=== PATIENT | male | born 2005 | race Asian ===

== ENCOUNTER 2023-10-14 14:01 | Emergency (ER) | payer OTHER ==
[~2023-10-14] VITALS: Ht 193 cm; Wt 70.5 kg
[2023-10-14 14:07] VITALS: TEMP 98
[2023-10-14] MEDS ORDERED: fentaNYL 50 MCG/ML 2 ML VIAL IV ONE (15:00)
[2023-10-14] MEDS ORDERED: Ondansetron 4 MG/2 ML VIAL IV ONE (15:00)
[2023-10-14] MEDS ORDERED: NS 1,000 ML IV ONE (15:00)
[2023-10-14 15:24] LABS: BASO # 0.1 K/mm3 (0.0-0.2); EOS % 0.8 % (0.0-4.0); GRAN # 2.6 K/mm3 (1.4-6.5); GRAN % 52.7 % (42.2-75.2); HEMATOCRIT 47.4 % (36.0-47.0); HEMOGLOBIN 16.5 g/dl (12.5-16.1); LYMPH # 1.8 K/mm3 (1.2-3.4); LYMPH % 36.5 % (20.0-51.0); MEAN CELL VOLUME 85 fl (80.0-95.0); MEAN CORPUSCULAR HEMOGLOBIN 30 pg (26-32); MEAN CORPUSCULAR HGB CONC 35 g/dl (33.0-37.0); MEAN PLATELET VOLUME 10.7 fl (7.4-10.4); MONO # 0.4 K/mm3 (0.1-0.6); MONO % 8.8 % (1.7-9.3); PLATELET COUNT 153 K/mm3 (130-400); RED BLOOD COUNT 5.56 M/mm3 (4.20-5.60); REDCELL DISTRIBUTION WIDTH-CV 12.4 % (11.5-14.5)
[2023-10-14 15:41] LABS: ALBUMIN 4.4 g/dL (3.5-5.0); BILIRUBIN,TOTAL 1.1 mg/dL (0.2-1.2); CALCIUM 9.6 mg/dL (8.4-10.2); CREATININE, serum 0.87 mg/dL (0.72-1.25); TOTAL PROTEIN 7.8 g/dl (6.2-8.1)
[2023-10-14 16:34] VITALS: BP 122/73; PULSE 53
[2023-10-14] MEDS ORDERED: NORCO 325 MG-51 TAB PO (16:45)
== END 2023-10-14 16:45 | disposition home or self-care (01) ==
LOC: COL.ER 14:01
PROVIDERS: Family Medicine
DX: J93.9 Pneumothorax, unspecified (principal)
CPT/HCPCS: J2405; J3010; J7030

== ENCOUNTER → 2023-11-29 | Outpatient (CLI) | payer OTHER ==
[~2023-11-29] MED LIST: NORCO 325 MG-51 TAB PO
== END ==
LOC: COL.RAD 15:33
DX: N50.811 Right testicular pain (principal)

== ENCOUNTER 2023-12-13 15:01 | Inpatient (IN) | payer OTHER ==
[2023-12-13] VITALS (7 sets, daily range): BP systolic 100–123; BP diastolic 49–77; PULSE 51–64; TEMP 97.7–98
[~2023-12-13] VITALS: Ht 195.6 cm; Wt 70.5 kg
[2023-12-13] MEDS ORDERED: fentaNYL 50 MCG/ML 2 ML VIAL IV ONE (16:30)
[2023-12-13] MEDS ORDERED: Midazolam 2 MG/2 ML VIAL IV ONE (16:30)
[2023-12-13] MEDS ORDERED: NS 1,000 ML IV ONE (17:45)
[2023-12-13] MEDS ORDERED: fentaNYL 50 MCG/ML 2 ML VIAL ONE (20:09)
[2023-12-13] MEDS ORDERED: NS 10 ML IV ONE (20:13)
[2023-12-13] MEDS ORDERED: Lidocaine PF 2% (20 MG/ML) 5 ML VIAL ONE (20:13)
--- NOTE | 2023-12-13 21:25 | NUR ---
Report recieved from [place]. All questions answered at this time.
[2023-12-13] MEDS ORDERED: oxyCODONE 5 MG TAB PO PRN (21:30)
[2023-12-13] MEDS ORDERED: Naloxone 0.4 MG/ML VIAL IV PRN (21:30)
[2023-12-13] MEDS ORDERED: Ondansetron 4 MG/2 ML VIAL IV PRN (21:30)
[2023-12-13] MEDS ORDERED: HYDROmorphone 0.5 MG/0.5 ML SYRINGE IV PRN (21:30)
--- NOTE | 2023-12-13 21:35 | NUR ---
Patient arrived to room 331 at this time with personal belongings. Brought to room by Beau from OR. Post-op VS initiated. Patient rates pain at 5/10 when taking a deep breath in. Water and food provided. Needs met. Assessment and med rec complete. IV in right forearm flushes easily without complicaitons. 28f chest tube to right chest. Dressing of xeroform, gauze, and tape is CDI. [place] dry suction water seal chest drain to -20 h20 suction. Oriented patient to room, bed, call light, and bathroom. Call light and personal items in reach. Bed in low position. Mother- Stephani and brother- Sonny at bedside.
[2023-12-13] MEDS ORDERED: Acetaminophen 500 MG TAB PO SCH (22:25)
[2023-12-14] VITALS (13 sets, daily range): BP systolic 99–123; BP diastolic 50–85; PULSE 54–64; TEMP 97.9–99
--- NOTE | 2023-12-14 00:04 | NUR ---
INCENTIVE SPIROMETER CONTRAINDICATED DUE TO PT HAVING A PNEUMOTHORAX. INCENTIVE SPIROMETER ORDER D/C'D. RN AWARE.
--- NOTE | 2023-12-14 07:26 | NUR ---
Report recieved form ALEKSANDER Xiong. Reviewed overnight events and labs. CT to left chest is at -20cm suction[facility] WIll continue with POC.
--- NOTE | 2023-12-14 10:46 | NUR ---
rack worker met with patient and his mother, Stephani, P# [phone], to discuss discharge planning. Patient lives in [place] as a [employer] student. PCP is Dr. Edwards, Pharmacy is [facility]. No issues affording medications. Insurance is UMR. DPOA-HC is not in writing but would go to Stephani, patient's next of kin. No DME, patient is independent with ADLS. Patient is able to transport himself to and from appointments. Patient would like to return home at time of discharge. DIscharge plan: Home
--- NOTE | 2023-12-14 11:52 | NUR ---
Verbal report given to primary nurse Laura. Questions entertained and answered. Care assumed by primary nurse.
--- NOTE | 2023-12-14 13:47 | NUR ---
Initial visit; Kushal in bed noticed Digital Marketing Lead had come into the room and acknowledged her. His mom was sitting in a chair near the door. Digital Marketing Lead addressed them both mentioning that she is available to provide Spiritual Care. She can pray for him at that time or keep him in her prayers. Mom thanked Digital Marketing Lead for looking in on him and offering Gods blessings. d
--- NOTE | 2023-12-14 23:25 | NUR ---
Patient assessed around 2009. Complained of level 4 pain to left chest tube site. Given PRN Roxicodone. Left chest tube is to 20 suction per orders. Dressing to site is CDI. Voices no further questions, needs, or concerns at this time. In bed with call light within reach.
[2023-12-15] VITALS (13 sets, daily range): BP systolic 113–127; BP diastolic 65–82; PULSE 55–66; TEMP 98.3–99.2
--- NOTE | 2023-12-15 06:27 | NUR ---
Patient given scheduled Acetaminophen during the night, and had PRN Roxicodone once this shift. Chest tube taken off of suction per orders at 0600. Only had 5mls of output from chest tube this shift. This nurse called radiology, and is aware of need for CXR at 0700. Patient voices no questions, needs, or concerns at this time. In bed with call light within reach.
--- NOTE | 2023-12-15 07:32 | NUR ---
Shift assessment complete. Pt. resting in bed w/ eyes closed upon entry. Lung sounds are clear over all mckeon. Pt. denies shortness of breath. Lt sided chest tube to water seal at 20 cm. Dressing CDI. Chest tube is draining small amounts of red-tinged fluid. Pt. states pain is 3/10, and states his pain is "more feasible" this morning. Pain goal is 4/10, pt. denies need for analgesia at this time. No further outstanding findings. Breakfast tray ordered. Pt. resting in bed w/ call light in reach. No request or complaints at this time.
--- NOTE | 2023-12-15 09:10 | NUR ---
Pt. reports pain is increasing and is requesting analgesia. Primary nurse notified.
--- NOTE | 2023-12-15 12:09 | NUR ---
Pt reports pain as 3/10. Denies further needs. Report given to ALEKSANDER Phillips.
--- NOTE | 2023-12-15 20:00 | NUR ---
Shift assessment complete. Respirations are even and unlabored. Lung sounds are clear over all mckeon. Lt side chest tube under water seal w/ scant amounts of blood-tinged drainage. Pt. reports pain is managable at this time and rates it 2/10. No further outstanding findings. Pt. denies needs or requests at this time. Call light in reach.
[2023-12-16] VITALS (10 sets, daily range): BP systolic 105–127; BP diastolic 64–86; PULSE 53–73; TEMP 97.6–97.9
--- NOTE | 2023-12-16 05:41 | NUR ---
Pt. had uneventful evening. Pain was controlled through the night however pt. states pain is increasing this morning but still tolerable. Scheduled acetaminophen administered per MAR. Pt. denies needs or request at this time. Call light in reach and mother is at bed side.
--- NOTE | 2023-12-16 10:00 | NUR ---
reviewed chest xray. Diet progressed, No plans for procedure today. Lovenox as ordered.
--- NOTE | 2023-12-16 11:22 | NUR ---
Patient resting in bed. His mother was at bedside. Patient denies the need for pain medication. rounded and plan of care reviewed.
--- NOTE | 2023-12-16 12:54 | NUR ---
Patient given warm wipes, offered fresh linens. Encouraged activity (sitting up in chair and or ambulation in halls). His mother has gone home. Patient watching TV/Reading book.
--- NOTE | 2023-12-16 18:29 | NUR ---
Patient resting in bed with minimal needs today. Report pain the same. Int. Chest tube to DD. Dressing intact. Will report off to nightnurse
[2023-12-17] VITALS (16 sets, daily range): BP systolic 100–121; BP diastolic 64–76; PULSE 51–92; TEMP 97.4–98.8
--- NOTE | 2023-12-17 09:15 | NUR ---
Pt. sitting up in bed. Pt. is A&OX3, assessment complete. INT to rt. forearm patent. Dr. Gr in the room at this time. Dr. Gr pulling Chest tube at this time. Vasaline pressure dressing applied by Dr. Gr. Pt. tolerated well. Pt. denies pain. Scheduled tylenol given. Pt. denies further needs, call light within reach.
[2023-12-17] MEDS ORDERED: Petrolatum, White Ointment 1 Each Tube TP SCH (09:20)
[2023-12-17] MEDS ORDERED: Rocuronium 50 MG/5 ML Multi-Dose VIAL ONE ×2 (14:34→15:27)
[2023-12-17] MEDS ORDERED: dexAMETHasone 10 MG/ML VIAL ONE (14:34)
[2023-12-17] MEDS ORDERED: fentaNYL 50 MCG/ML 2 ML VIAL ONE (14:34)
[2023-12-17] MEDS ORDERED: Lidocaine PF 2% (20 MG/ML) 5 ML VIAL ONE (14:34)
[2023-12-17] MEDS ORDERED: Ondansetron 4 MG/2 ML VIAL ONE (14:34)
[2023-12-17] MEDS ORDERED: fentaNYL 50 MCG/ML 2 ML VIAL IV ONE (14:37)
--- NOTE | 2023-12-17 14:48 | NUR ---
Pt. to the OR at this time.
[2023-12-17] MEDS ORDERED: Midazolam 2 MG/2 ML VIAL ONE (14:52)
[2023-12-17] MEDS ORDERED: Naloxone 0.4 MG/ML VIAL IV PRN (16:15)
[2023-12-17] MEDS ORDERED: Ondansetron 4 MG/2 ML VIAL IV PRN ×2 (16:15→16:45)
[2023-12-17] MEDS ORDERED: Ibuprofen 600 MG TAB PO PRN (16:30)
[2023-12-17] MEDS ORDERED: HYDROmorphone 0.5 MG/0.5 ML SYRINGE IV PRN (16:30)
[2023-12-17] MEDS ORDERED: hydrALAZINE 20 MG/ML 1 ML VIAL IV PRN (16:45)
[2023-12-17] MEDS ORDERED: HYDROmorphone 1 MG/1 ML SYRINGE [PACU/SDC ONLY] IV PRN (16:45)
[2023-12-17] MEDS ORDERED: fentaNYL 50 MCG/ML 1 ML SYRINGE/VIAL [PACU/SDC ONLY] IV PRN (16:45)
[2023-12-17] MEDS ORDERED: Acetaminophen 500 MG TAB PO SCH (17:14)
[2023-12-18] VITALS (11 sets, daily range): BP systolic 100–113; BP diastolic 63–73; PULSE 67–90; TEMP 97.7–98.3
--- NOTE | 2023-12-18 07:10 | NUR ---
Patient resting in bed. Talking in a whisper, reports pain elevated with talking. He is rating his pain a 5/10 this am, but denies wanting to take roxicodone this am, just tyelnol. I did discussed with him motrin as a non narcotic option avaliable as well. He reports no problem with constipation, but I did make him aware that narcotics can cause constipatin and to let staff know if this becomes a problem. CHest tube to 20mg suction as ordered, with minimal output. Dressing CDI. Fresh ice water provided, denies other need at this time
[2023-12-18] MEDS ORDERED: Ketorolac 30 MG/ML VIAL IV SCH (08:30)
[2023-12-18] MEDS ORDERED: Polyethylene Glycol 3350 17 GM PDS PO SCH (09:00)
[2023-12-18] MEDS ORDERED: Docusate Sodium 100 MG CAP PO SCH (09:00)
--- NOTE | 2023-12-18 09:13 | NUR ---
rounded. Plan of care reviewed with patient and mother. Patient mother had concerns of constipation and orders obtained. We also reviewed toradol, but patient had burning with toradol in IV & refused at this time. Patient mother assisting with a bed bath at this time and linens.
[2023-12-18] MEDS ORDERED: Ibuprofen 600 MG TAB PO SCH (10:15)
--- NOTE | 2023-12-18 10:44 | NUR ---
Patient resting in bed. Reports pain creeping up again, feels tylenol wearing off. Did get orders chagned from , since patient unable to tolerate toadol, order changed to motrin scheduled. Denies other needs at this time
--- NOTE | 2023-12-18 11:12 | NUR ---
Patient agreeable to sit up in chair, He did not quite feel up to ambulating halls yet. His facial expressions show that his is uncomfortable up in chair. I again offered Roxicodone, but patient not interested. He is agreeable to try Kpad to his Left neck.shoulder. Patient also concerned about his incentive spirometer use, I reassured him he is using it well, he is not expected to reach the top especially after having a lung surgery. Will continue to give positive reenforcments.
--- NOTE | 2023-12-18 12:34 | NUR ---
Patient in positive spirits. He reports feeling better. Believes the Kpad is helping. He reports it being easier to use incentive spirometer. We ambulated around the room, thinks he will be ready to walk halls this afternoon. Lunch ordered.
--- NOTE | 2023-12-18 13:53 | NUR ---
Patient finishing lunch tray, denies needs at this time
--- NOTE | 2023-12-18 16:29 | NUR ---
Kushal up to the bathroom & voided, no BM yet, but reports flatus. Patient ambulated arounded room and to the hallway. He reports his left side becoming more tender, but reports neck and shoulder discomfort improved. Motrin as scheduled. Minimal drainage from chest tube, remains to 20cmmg suction as ordered to dry seal canister. He continues to Use Incentive spirometer as ordered. Fresh ice water provided and fluid intake encourged. Denies other needs at this time
--- NOTE | 2023-12-18 17:24 | NUR ---
Patient resting in bed, with friend at bedside.
--- NOTE | 2023-12-18 22:05 | NUR ---
Patient given PRN Roxicodone and scheduled Motrin. Reported pain to left chest tube site was a 5. Peripheral INT to right forearm. Reports some difficulty with taking deep breaths, but states it is better. LS CTA. HRR. BSAx4. No Bm for 6 days. Given scheduled Colace. States he does not feel backed up at this time, and that it is hard for him to have a BM when he is not at home. No edema. Dressing to left chest tube site is CDI. Voices no questions, needs, or concerns at this time. In bed with call light within reach.
[2023-12-19] VITALS (12 sets, daily range): BP systolic 97–115; BP diastolic 52–76; PULSE 55–82; TEMP 97.4–98.5
--- NOTE | 2023-12-19 05:53 | NUR ---
Patient received Tylenol, Motrin, and Roxicodone as requested for pain during the night. Had 5 ml output in chest tube. Voices no questions, needs, or concerns at this time. In bed with call light within reach.
[2023-12-19 09:16] LABS: BASO % 0.5 % (0.0-2.0); EOS # 0.1 K/mm3 (0.0-0.7); EOS % 1.2 % (0.0-4.0); GRAN # 4.1 K/mm3 (1.4-6.5); GRAN % 55.2 % (42.2-75.2); HEMATOCRIT 42.8 % (36.0-47.0); LYMPH # 2.4 K/mm3 (1.2-3.4); LYMPH % 32.5 % (20.0-51.0); MEAN CELL VOLUME 86 fl (80.0-95.0); MEAN CORPUSCULAR HEMOGLOBIN 30 pg (26-32); MEAN CORPUSCULAR HGB CONC 35 g/dl (33.0-37.0); MEAN PLATELET VOLUME 10.4 fl (7.4-10.4); MONO # 0.8 K/mm3 (0.1-0.6); MONO % 10.3 % (1.7-9.3); PLATELET COUNT 151 K/mm3 (130-400); REDCELL DISTRIBUTION WIDTH-CV 12.2 % (11.5-14.5)
[2023-12-19 09:18] LABS: CALCIUM 8.9 mg/dL (8.4-10.2); CREATININE, serum 0.79 mg/dL (0.72-1.25); POTASSIUM 3.9 mEq/L (3.5-4.5)
--- NOTE | 2023-12-19 21:26 | NUR ---
PATIENT RESTING IN BED WATCHING TV. DENIES PAIN, HOWEVER STATES HE IS FEELING A "WARM" FEELING AROUND CHEST TUBE INSERTION SITE. CHEST TUBE DRESSING IS CLEAN/DRY/INTACT, NO DRAINAGE OR REDNESS PRESENT. CALL LIGHT WITHIN REACH. BED IS LOCKED AND IN LOW POSITION
[2023-12-20] VITALS (13 sets, daily range): BP systolic 110–128; BP diastolic 65–77; PULSE 58–97; TEMP 97.3–98.6
[2023-12-20] MEDS ORDERED: Ibuprofen 600 MG TAB PO PRN (10:00)
--- NOTE | 2023-12-20 12:05 | NUR ---
PATIENT ALERT AND ORIENTED X4. VSS. PATIENT HERE FOR PNEUMO. CT TO WATERSEAL. PATIENT REPORTS PAIN /, REQUESTS SCHEDULED TYLENOL/MOTRIN WHEN DUE. PATIENT TOLERATING PO. NO FURTHER NEEDS. CALL LIGHT IN REACH.
--- NOTE | 2023-12-20 13:21 | NUR ---
SW met with patient to review discharge plan. RN in room during conversation, Patient continues to have pain from drain sight. Patient reports that he lives with his brother in [place] and that brother will assist him as needed once he returns home. Patient reports that his mother has been in contact with his professors at [employer] related to his missed days and assignments. Patient reports they have a meeting on Monday to discuss his assignments. Patient denies any discharge needs at this time. Discharge plan: Home
--- NOTE | 2023-12-20 13:27 | NUR ---
PATIENT HAS NOT HAD A BM ALL WEEK, PATIENT ENCOURAGED TO DRINK EXTRA WATER AND INCREASE PHYSICAL ACTIVITY. PATIENT'S MOTHER REQUESTS THAT SHE BE ABLE TO BRING IN LAXATIVES OR MEDICATIONS FROM HOME, PATIENT'S MOTHER EDUCATED ON IMPORTANCE OF ALLOWING HOSPITAL AND STAFF TO PROVIDE MEDICATIONS FROM FACILITY. PATIENT REPORTS HE DOES NOT DRINK WATER AND HAS NOT INCREASED ACTIVITY D/T PAIN. PATIENT ENCOURAGED TO REPORT ACCURATE PAIN LEVEL TO NURSING STAFF IN ORDER TO BE TREATED FOR PAIN.
--- NOTE | 2023-12-20 15:50 | NUR ---
SW received call from patient's mother stating her concerns of patient being in his room for 7 days and beginning to have symtoms of depression. Mother stated that she is coming from [facility]'s home to get him "regular clothes" for him to wear instead of being in hosptial gown. She also stated that patient has been encouraged by staff to work on his school studies while in his room. Mother stated that patient's brother visited and has walked with patient in [place]. Mother is requesting to take patient outside in a wheelchair to get sunshine on his face and feel more motivated. SONJA informed mother that patient leaving the unit with chest tube in would have to be addressed with the attending and nursing during rounds tomorrow morning. Mother voiced understanding. SW called unit to notify RN of this conversation. RN busy at time of call and message was left with IVORY Bergeron to notify RN of mother's call and requests.
--- NOTE | 2023-12-20 16:06 | NUR ---
PATIENT NON-COMPLIANT WITH IS. PATIENT ENCOURAGED TO USE IS PER ORDER. DR. DUFFY AWARE THAT PATIENT IS NON-COMPLIANT WITH INCENTIVE SPIROMETER, AMBULATION, AND ORAL INTAKE.
[2023-12-21] VITALS (12 sets, daily range): BP systolic 111–177; BP diastolic 63–80; PULSE 59–95; TEMP 98–98.5
--- NOTE | 2023-12-21 07:40 | NUR ---
Recieved bedside shift report from ALEKSANDER Zayas. Shift assessment complete at this time. Respirations are even and unlabored. Oxygen saturations are WNL at 98% on room air. Rt lung is clear to ausculation. However, Lt. lung sounds are diminished at bases. Pt. still c/o pain w/ movement and deep breaths- rates pain 3/10 this morning. Pain is isolated to chest tube insertion site. Pt. reports K-pad has helped alleviate Lt. shoulder pain. Lt. chest tube is under water seal w/ scant amounts of red-tinged drainage. Dressing is CDI. No further outstanding findings. Pt. denies needs or requests. Call light in reach.
--- NOTE | 2023-12-21 08:30 | NUR ---
Offered breakfast, pt. reports he is waiting for his mother to arrive before ordering.
--- NOTE | 2023-12-21 08:31 | NUR ---
Assisted pt. to restroom. Gait is steady. Pt. is wincing with movement. Pt. returned to bed. Scheduled meds administered per MAY. Pt. denies needs or requests at this time. Call light in reach.
--- NOTE | 2023-12-21 09:29 | NUR ---
Pt's mother is at bedside. Pt states pain is "about the same." Breakfast is ordered. Pt's mom reports she and the patient will ambulate halls after breakfast.
--- NOTE | 2023-12-21 10:29 | NUR ---
Pt returned from ambulating halls w/ mother. Pt. continues to rate pain /10. He reports insertion site pain increased with ambulation and Lt. shoulder pain returned but both subside with rest. Scheduled analgesia administered per MAY. K-pad in place. Linens changed, bathing wipes and shampoo cap provided. Pt. denies further needs or request. Call light in reach.
--- NOTE | 2023-12-21 12:12 | NUR ---
Report given to primary nurse, ALEKSANDER Phillips. All questions entertained and answered. Care assumed by primary nurse.
--- NOTE | 2023-12-21 20:59 | NUR ---
Patient assessed at this time, see shift assessment, A/Ox4, chest tube taken out at 1730 as per report from dayshift, reports minimal pain, PS of 1/10, denies further needs, call light and personal items within reach, will continue to monitor.
[2023-12-22] VITALS (8 sets, daily range): BP systolic 120–130; BP diastolic 70–85; PULSE 62–71; TEMP 97.8–98.2
--- NOTE | 2023-12-22 08:02 | NUR ---
Pt. resting in bed upon entry. Shift assessment complete. Respirations are even and unlabored. Oxygen saturation is 97% on room air. Occlusive dressing to Lt chest is CDI. Pt. denies pain this morning, rating pain /10. No wincing noted w/ movement. No further outstanding findings. Pt. denies needs or requests this morning. Hygiene offered and refused at this time. Call light in reach.
--- NOTE | 2023-12-22 08:30 | NUR ---
Pt. not interested in breakfast this morning. Reports he may eat later in the morning.
[2023-12-22] MEDS ORDERED: ROXICODONE 55 MG/TAB PO (09:42)
--- NOTE | 2023-12-22 09:53 | NUR ---
Pt doing well this morning. Dr Gr has been in to see pt and orders are in for discharge. Pt has no complaints of pain at this time just states that he feels slight pulling on his left side with movement. Lung sounds are clear, but diminished when he exhales. Pt is independent in the room
--- NOTE | 2023-12-22 10:20 | NUR ---
Discontinued INT to Rt forearm. Catheter tip intact. No signs of phlebitis or infiltration. Pt. tolerated well.
--- NOTE | 2023-12-22 11:31 | NUR ---
Report given to primary nurse, ALEKSANDER Pantoja. All questions entertained and answered. Care assumed by primary nurse. Pt. awaiting ride home from mom. Denies needs or requests at this time. Call light in reach.
--- NOTE | 2023-12-22 11:40 | NUR ---
Reviewed discharge instructions with pt. Talked with his mom on the phone regarding discharge as well. She stated that she would be here or pts brother to pick him up. Informed him to notify nursing when his ride arrives and we would escort him out.
--- NOTE | 2023-12-22 12:10 | NUR ---
Pt escorted out at this time
== END 2023-12-22 12:05 | disposition home or self-care (01) | DRG 165 ==
LOC: COL.ER 15:01 → SURG 17:31
PROVIDERS: ADMIT Surgery
PROC: 0B5P3ZZ Destruction of Left Pleura, Percutaneous Approach (ICD-10-PCS; 2023-12-13)
PROC: 0W9B30Z Drainage of Left Pleural Cavity with Drainage Device, Percutaneous Approach (ICD-10-PCS; principal; 2023-12-13 21:15)
DX: J93.9 Pneumothorax, unspecified (principal)
CPT/HCPCS: A7041; A7048; A9284; J0690; J1100; J1650; J1885; J2250; J2405; J2704; J2795; J3010; J7030